=== PATIENT | male | born 1990 | race Caucasian/White ===

== ENCOUNTER 2024-09-08 15:42 | Emergency (ER) | payer OTHER ==
[~2024-09-08] VITALS: Ht 165.1 cm; Wt 86.1 kg
[2024-09-08 15:48] VITALS: O2SAT 100
[2024-09-08 16:02] LABS: CLARITY URINE CLEAR (CLEAR); COLOR URINE YELLOW (YELLOW); GLUCOSE URINE NEGATIVE (NEGATIVE); KETONES URINE NEGATIVE (NEGATIVE); LEUKOCYTE ESTERASE URINE NEGATIVE (NEGATIVE); NITRITE URINE NEGATIVE (NEGATIVE); OCCULT BLOOD URINE NEGATIVE (NEGATIVE); PROTEIN URINE NEGATIVE (NEGATIVE); SPECIFIC GRAVITY URINE 1.009 (1.005-1.030); UROBILINOGEN URINE 0.2 E.U./dL (0.2-1.0)
[2024-09-08 16:23] LABS: BASOPHILS % 0.3 % (0.0-2.0); EOSINOPHILS % 1.3 % (0.0-5.0); HEMATOCRIT. 45.7 % (42.0-52.0); HEMOGLOBIN. 15.6 g/dL (14.0-18.0); LYMPHOCYTES % 22.8 % (20.0-50.0); MEAN CORPUSCULAR HEMOGLOBIN 30.2 pg (28.0-32.0); MEAN CORPUSCULAR HGB CONC 34.1 g/dL (31.0-37.0); MEAN CORPUSCULAR VOLUME 88.4 fL (80.0-94.0); MEAN PLATELET VOLUME 7.2 fl (7.4-10.4); MONOCYTES % 9.1 % (2.0-8.0); NEUTROPHILS % 66.5 % (40.0-76.0); PLATELET 317 x1000/uL (130-400); RED BLOOD CELL COUNT 5.17 mill/uL (4.7-6.1); RED CELL DISTRIBUTION WIDTH 12.9 % (11.6-14.6); WHITE BLOOD COUNT 11.6 x1000/uL (4.5-11.0)
[2024-09-08 16:29] LABS: CHLORIDE 104 mEq/L (98-107); POTASSIUM 4.5 mEq/L (3.5-5.1); SODIUM 139 mEq/L (136-145)
[2024-09-08 16:30] LABS: CALCIUM 9.9 mg/dL (8.7-10.4); CARBON DIOXIDE 30 mEq/L (21-32)
[2024-09-08 16:35] LABS: CREATININE 1.1 mg/dL (0.6-1.3); GLUCOSE 102 mg/dL (70-105); UREA NITROGEN BLOOD 11 mg/dL (9-23)
[2024-09-08 16:37] LABS: ALANINE AMINOTRANSFERASE 51 IU/L (10-49); ALBUMIN 4.8 g/dL (3.2-4.8); ASPARTATE AMINOTRANSFERASE 24 IU/L (<34); BILIRUBIN DIRECT 0.2 mg/dL (<=3.0)
[2024-09-08 16:38] LABS: BILIRUBIN TOTAL 0.8 mg/dL (0.1-1.0)
[2024-09-08] MEDS ORDERED: NAPR-681 MT (18:49)
[2024-09-08] MEDS ORDERED: LEVO-65 MT (18:49)
[2024-09-08 19:06] VITALS: BP 143/87; PULSE 85; RESP 16; TEMP 36.78072; O2SAT 100
== END 2024-09-08 19:13 | disposition home or self-care (01) ==
LOC: ER 15:42
DX: K52.9 Noninfective gastroenteritis and colitis, unspecified (principal); Z79.1 Long term (current) use of non-steroidal anti-inflammatories (NSAID)
CPT/HCPCS: 36415; 80048; 80076; 81003; 85025; 99283

== ENCOUNTER 2025-04-23 19:09 | Inpatient (IN) | payer OTHER ==
[~2025-04-23] VITALS: Ht 167.6 cm; Wt 84.4 kg
[~2025-04-23 19:09] MED LIST: LEVO-65 MT; NAPR-681 MT
[2025-04-23 19:29] VITALS: O2SAT 100
[2025-04-23 19:56] LABS: BASOPHILS % 0.5 % (0.0-2.0); EOSINOPHILS % 1.1 % (0.0-5.0); HEMATOCRIT. 44.5 % (42.0-52.0); HEMOGLOBIN. 15.3 g/dL (14.0-18.0); LYMPHOCYTES % 24.4 % (20.0-50.0); MEAN PLATELET VOLUME 7.0 fl (7.4-10.4); MONOCYTES % 7.3 % (2.0-8.0); NEUTROPHILS % 66.7 % (40.0-76.0); PLATELET 293 x1000/uL (130-400); RED BLOOD CELL COUNT 5.09 mill/uL (4.7-6.1); RED CELL DISTRIBUTION WIDTH 12.8 % (11.6-14.6)
[2025-04-23 20:12] LABS: HCG SCREEN NEGATIVE
[2025-04-23 20:16] LABS: CREATININE 1.1 mg/dL (0.6-1.3)
[2025-04-23 20:17] LABS: UREA NITROGEN BLOOD 10 mg/dL (9-23)
[2025-04-23 20:18] LABS: ASPARTATE AMINOTRANSFERASE 20 IU/L (<34)
[2025-04-23 20:19] LABS: BILIRUBIN DIRECT 0.2 mg/dL (<=3.0); BILIRUBIN TOTAL 0.7 mg/dL (0.1-1.0); PROTEIN TOTAL 8.4 g/dL (6.0-8.3)
[2025-04-23] MEDS: KETOROLAC 30MG/ML VIAL IM ONE (20:45)
[2025-04-23] MEDS: CEFTRIAXONE 1GM/50ML 50 ML IV ONE (22:52)
[2025-04-23] MEDS: METRONIDAZOLE 500 MG PREMIX 100 ML IV ONE (23:16)
[2025-04-24] MEDS ORDERED: IPRATROPIUM/ALBUTEROL 0.5-3(2.5)MG/3ML NEB HHN PRN (01:15)
[2025-04-24] MEDS ORDERED: GUAIFENESIN 200MG/10ML SUGAR FREE UDC PO PRN (01:15)
[2025-04-24] MEDS ORDERED: MAGNESIUM/ALUMINUM HYDROXIDE/SIMETHICONE 30ML UDC PO PRN (01:15)
[2025-04-24] MEDS ORDERED: CLONIDINE 0.1MG TABLET PO PRN (01:15)
[2025-04-24] MEDS ORDERED: ACETAMINOPHEN 325MG TABLET PO PRN (01:15)
[2025-04-24] MEDS ORDERED: DOCUSATE SODIUM 100MG CAPSULE PO PRN (01:15)
[2025-04-24] MEDS ORDERED: ONDANSETRON HCL 4MG/2ML INJ IV PRN (01:15)
[2025-04-24] MEDS ORDERED: MORPHINE SULFATE 2 MG/ML INJ (NOT FOR IM USE) IV PRN (01:30)
[2025-04-24] MEDS: SODIUM CHLORIDE 0.9% 1,000 ML IV SCH (01:30)
[2025-04-24 01:50] VITALS: BP 131/91; PULSE 71; RESP 16; TEMP 36.5848
[2025-04-24] MEDS ORDERED: DEXTROSE 50% WATER 50ML SYRINGE IV PRN (03:00)
[2025-04-24] MEDS: KETOROLAC 30MG/ML VIAL IV PRN (03:13)
[2025-04-24] MEDS: METRONIDAZOLE 500 MG PREMIX 100 ML IV SCH (05:49)
[2025-04-24] MEDS: DEXT 5%/0.45% NACL 1000ML 1,000 ML IV SCH (05:49)
[2025-04-24] MEDS: BLOOD SUGAR DIAGNOSTIC STRIP TEST SCH (05:50)
[2025-04-24] MEDS ORDERED: METRONIDAZOLE 500 MG PREMIX 100 ML IV SCH (06:00)
[2025-04-24] MEDS: INSULIN LISPRO 100 UNITS/ML SUBCUT SCH (07:10)
[2025-04-24 08:00] VITALS: BP 126/80; PULSE 61; RESP 18; TEMP 35.9; O2SAT 99
[2025-04-24] MEDS: PANTOPRAZOLE SODIUM 40 MG/VIAL IV SCH (09:07)
[2025-04-24] MEDS: ENOXAPARIN 40MG/0.4ML SYR SUBCUT SCH (09:08)
[2025-04-24 10:35] LABS: TRIGLYCERIDE 107.0 mg/dL (0-150)
[2025-04-24 10:36] LABS: LDL CHOLESTEROL 82.0 mg/dL (5-100)
[2025-04-24 12:00] VITALS: BP 119/82; PULSE 80; RESP 18; TEMP 36.9; O2SAT 98
[2025-04-24 16:00] VITALS: BP 123/56; PULSE 75; RESP 18; TEMP 36.8; O2SAT 98
[2025-04-24 20:00] VITALS: BP 133/86; PULSE 81; RESP 17; TEMP 36.4; O2SAT 99
[2025-04-24] MEDS: CEFTRIAXONE 1GM/50ML 50 ML IV SCH (21:30)
[2025-04-24] MEDS ORDERED: CEFTRIAXONE 2GM/50ML 50 ML IV NR (22:00)
[2025-04-25 04:00] VITALS: BP 126/79; PULSE 67; RESP 16; TEMP 36.3; O2SAT 99
[2025-04-25 08:00] VITALS: BP 124/80; PULSE 67; RESP 16; TEMP 36.3; O2SAT 99
[2025-04-25 08:09] LABS: BASOPHILS % 0.4 % (0.0-2.0); EOSINOPHILS % 2.5 % (0.0-5.0); HEMATOCRIT. 43.5 % (42.0-52.0); HEMOGLOBIN. 14.9 g/dL (14.0-18.0); LYMPHOCYTES % 30.5 % (20.0-50.0); MEAN PLATELET VOLUME 7.4 fl (7.4-10.4); MONOCYTES % 9.6 % (2.0-8.0); NEUTROPHILS % 57.0 % (40.0-76.0); PLATELET 294 x1000/uL (130-400); RED BLOOD CELL COUNT 5.00 mill/uL (4.7-6.1); RED CELL DISTRIBUTION WIDTH 12.8 % (11.6-14.6)
[2025-04-25 08:11] LABS: CREATININE 1.1 mg/dL (0.6-1.3); UREA NITROGEN BLOOD 11 mg/dL (9-23)
[2025-04-25 08:13] LABS: PHOSPHORUS 3.4 mg/dL (2.5-4.9)
[2025-04-25 12:00] VITALS: BP 130/70; PULSE 70; RESP 16; TEMP 36.3; O2SAT 99
[2025-04-25 16:00] VITALS: BP 131/72; PULSE 73; RESP 16; TEMP 36.3; O2SAT 99
[2025-04-25 20:00] VITALS: BP 137/92; PULSE 71; RESP 17; TEMP 36.4; O2SAT 98
[2025-04-26] VITALS: BP 106/76; PULSE 66; RESP 17; TEMP 36.2; O2SAT 98
[2025-04-26 04:00] VITALS: BP 104/69; PULSE 63; RESP 16; TEMP 36.4; O2SAT 97
[2025-04-26 08:00] VITALS: BP 106/66; PULSE 63; RESP 16; TEMP 36.4; O2SAT 97
[2025-04-26] MEDS ORDERED: PROT40 MT (11:43)
[2025-04-26] MEDS ORDERED: METR-167 MT (11:45)
[2025-04-26] MEDS ORDERED: LEVO-65 MT (11:46)
[2025-04-26 12:00] VITALS: BP 110/67; PULSE 63; RESP 16; TEMP 36.4; O2SAT 97
[2025-04-27] MEDS ORDERED: METRONIDAZOLE 500MG TABLET PO SCH (06:00)
[2025-04-27] MEDS ORDERED: FAMOTIDINE 20MG/2ML VIAL IV SCH (09:00)
== END 2025-04-26 13:54 | disposition home or self-care (01) | DRG 720 ==
LOC: ER 19:09 → EDBEDREQDT 04-24 00:28 → EDBEDREQTM 04-24 00:28 → EDBEDREQ 04-24 00:28 → ENRESERV 04-24 00:33 → 7EST 04-24 02:28
PROVIDERS: ADMIT Hospitalist; ATTEND Hospitalist
DX: A41.9 Sepsis, unspecified organism (principal); I10 Essential (primary) hypertension; K57.32 Diverticulitis of large intestine without perforation or abscess without bleeding; K42.9 Umbilical hernia without obstruction or gangrene; N50.812 Left testicular pain; R79.82 Elevated C-reactive protein (CRP); Z79.899 Other long term (current) drug therapy
CPT/HCPCS: 36415; 74176; 76870; 80048; 80061; 80076; 82962; 83036; 83735; 84100; 84145; 84443; 84703; 85025; 86141; 93976; 96372; 99285; J0696; J1650; J1885; J2470; J3490